=== PATIENT | female | born 1995 | race Two or more races ===

== ENCOUNTER 2018-10-20 03:36 | Emergency (ER) | payer OTHER ==
[~2018-10-20] VITALS: Ht 154.9 cm; Wt 56.2 kg
[2018-10-20 03:42] VITALS: BP 117/71
== END 2018-10-20 04:14 | disposition home or self-care (01) ==
LOC: ER 03:40
DX: S61.432A Puncture wound without foreign body of left hand, initial encounter (principal); Z86.19 Personal history of other infectious and parasitic diseases; W46.0XXA Contact with hypodermic needle, initial encounter; Y93.89 Activity, other specified; Y92.89 Other specified places as the place of occurrence of the external cause; Y99.8 Other external cause status
CPT/HCPCS: 86803; 87806; 99283; A4606; 36415; 86706